=== PATIENT | male | born 1960 | race Caucasian/White ===

== ENCOUNTER 2017-01-19 07:02 | Emergency (ER) | payer OTHER ==
[2017-01-19] MEDS ORDERED: NITROGLYCERIN OINT 1 INCH/GM PACKET TOPICAL STA (07:36)
[2017-01-19] MEDS ORDERED: ASPIRIN 81 MG CHEW PO STA (07:36)
[2017-01-19 07:51] LABS: Basophils % (A) 1 %; CH 30.4; CHCM 34.4; Eosinophils # (A) 0.1 k/uL (0-0.7); Eosinophils % (A) 2 %; HCT 42.9 % (39.0-53.0); HDW 2.46; HGB 14.5 gm/dL (13.0-17.5); Luc # (Auto) 0.24; Luc % (Auto) 4; Lymphocytes # (A) 1.3 k/uL (1.0-4.8); Lymphocytes % (A) 23 %; MCHC 33.8 g/dL (31.0-37.0); MCV 88.8 fL (80.0-100.0); Mean Platelet Volume 7.3; Monocytes # (A) 0.5 k/uL (0-1.0); Monocytes % (A) 8 %; Neutrophils # (A) 3.5 k/uL (1.3-7.7); Neutrophils % (A) 62 %; RBC 4.83 m/uL (4.30-5.90); RDW 12.8 % (11.5-15.5); WBC 5.7 k/uL (3.8-10.6); WBC (Perox) 5.59
[2017-01-19 07:57] LABS: Partial Thromboplastin Time 23.9 sec (22.0-30.0); Prothrombin Time 10.4 sec (9.0-12.0)
[2017-01-19 08:05] LABS: ALT 52 U/L (21-72); AST 32 U/L (17-59); Alkaline Phosphatase 68 U/L (38-126); Anion Gap 12 mmol/L; Blood Urea Nitrogen 16 mg/dL (9-20); Calcium 9.3 mg/dL (8.4-10.2); Carbon Dioxide 25 mmol/L (22-30); Chloride 104 mmol/L (98-107); Glucose 219 mg/dL (74-99); Magnesium 1.7 mg/dL (1.6-2.3); Non-African American GFR(MDRD) >60 (>60 ml/min/1.73 sqM); Potassium 4.4 mmol/L (3.5-5.1); Sodium 141 mmol/L (137-145); Total Bilirubin 0.6 mg/dL (0.2-1.3)
--- NOTE | 2017-01-19 08:13 | ED ---
Chest Pain HPI - General Chief Complaint: Chest Pain Stated Complaint: Chest Pain Time Seen by Provider: 01/19/17 07:32 Source: patient Mode of arrival: wheelchair Limitations: no limitations - History of Present Illness Initial Comments: This 56-year-old white male presents with complaint of some chest pain. He describes as a pressure, gripping and tightness to his left chest. The onset occurred at 1 AM. He did have some palpitations, dizziness, and shortness of breath. He denies any known history of cardiac disease. His last stress test was 2 years ago. He denies any leg pain or swelling or history of DVT or PE. He does relate that he had a similar incident approximately 7 years ago which was related to anxiety. He denies feeling anxious recently. No other complaints or modifying factors. - Related Data Allergies Allergy/AdvReac Type Severity Reaction Status Date / Time No Known Allergies Allergy Verified 01/19/17 07:11 Review of Systems ROS Statement: Those systems with pertinent positive or pertinent negative responses have been documented in the HPI. ROS Other: All systems not noted in ROS Statement are negative. Past Medical History Past Medical History: Diabetes Mellitus, GERD/Reflux, Hyperlipidemia, Hypertension History of Any Multi-Drug Resistant Organisms: None Reported Additional Past Surgical History / Comment(s): cyst removal to right 3rd finger on 01/15/2017 Past Psychological History: Anxiety Smoking Status: Never smoker Past Alcohol Use History: Occasional Past Drug Use History: None Reported General Exam - General Exam Comments Initial Comments: GENERAL: The patient is well nourished and well hydrated. VITAL SIGNS: Heart rate, blood pressure, respiratory rate reviewed as recorded in nurse's notes. EYES: Pupils are round and reactive. Extraocular movements are intact. No conjunctival / lid redness or swelling. ENT: No external evidence of injury, swelling, or ecchymosis. Airway is patent. Throat is clear. NECK: Nontender. No swelling or evidence of injury. No subcutaneous emphysema. Trachea is midline. No thyroid mass. HEART: Regular rate and rhythm. Good peripheral pulses. LUNGS/CHEST: Breath sounds clear and equal bilaterally. No rales, rhonchi, or wheezes. No ecchymosis, subcutaneous emphysema, or tenderness. ABDOMEN: Abdomen soft without tenderness. No palpable masses or organomegaly. No peritoneal signs. No abdominal wall swelling or ecchymosis. EXTREMITIES: No extremity tenderness. Normal muscle tone and function. No thoracolumbar tenderness. NEUROLOGIC: Sensation is grossly intact. Cranial nerve exam reveals face is symmetrical, tongue is midline, speech is clear. SKIN: No abrasions or ecchymosis is noted. No induration or masses noted. PSYCHIATRIC: Alert and oriented. Appropriate behavior and judgment. Limitations: no limitations Course Vital Signs 01/19/17 01/19/17 07:06 07:59 Temperature 98.9 F 97.2 F L Pulse Rate 78 75 Respiratory 16 16 Rate Blood Pressure 186/79 169/84 O2 Sat by Pulse 97 97 Oximetry Chest Pain MDM - MDM The patient was seen and examined. All diagnostics were reviewed. The EKG shows a normal sinus rhythm at a rate of 73. No acute ST-T wave changes are identified. The MN interval is 154, QRS duration is 92, and QTC is 440. He is given an aspirin as well as some Nitropaste. A chest x-ray was done and does show some cardiomegaly and old granulomatous disease. The laboratory overall is fairly unremarkable. His blood pressure was elevated at 186/79 but did come down to 160/91 on recheck. He relates that his blood pressure is always elevated and this last reading is actually good for him. He has had a difficult time controlling his blood pressure through primary physician is on medications for this. He is visiting from [place]. It is recommended that he be admitted to the hospital to rule out any possibility of acute coronary syndrome and for further Cardiologic workup. He refuses. Risks and benefits are discussed and he leaves AGAINST MEDICAL ADVICE. He is quite lucid at time of discussion and does understand the associated risks of leaving AMA. Disposition Clinical Impression: Unstable angina pectoris, Chest pain, Left against medical advice, Hypertension Disposition: HOME SELF-CARE Condition: Fair Instructions: Chest Pain (ED), Hypertension (ED) Referrals: Nonstaff,Physician [Primary Care Provider] - 1-2 days Time of Disposition: 08:59
--- NOTE | 2017-01-19 08:31 | XR ---
EXAMINATION TYPE: XR chest 2V DATE OF EXAM: 01/19/2017 8:10 AM HISTORY: Chest Pain. REFERENCE: NONE. FINDINGS: There is a calcified granuloma in the right lung base. The lungs are otherwise clear. Pleur al spaces are clear. Heart size is upper limits of normal. IMPRESSION: 1. BORDERLINE CARDIOMEGALY. 2. EVIDENCE OF OLD GRANULOMATOUS DISEASE.
[2017-01-19 08:36] LABS: Creatine Kinase 89 U/L (55-170)
[2017-01-19 08:48] LABS: Creatine Kinase MB 0.4 ng/mL (0.0-2.4); Troponin I <0.012 ng/mL (0.000-0.034)
[2017-01-19 09:35] VITALS: BP 145/85; PULSE 69; RESP 15; TEMP 97.9
== END 2017-01-19 09:35 | disposition left against medical advice (07) ==
LOC: EC 07:02
DX: I20.0 Unstable angina (principal); I10 Essential (primary) hypertension
CPT/HCPCS: 36415; 71020; 80053; 82550; 82553; 83735; 84484; 85025; 85610; 85730; 93005; 99285